=== PATIENT | female | born 1970 | race Caucasian/White ===

== ENCOUNTER 2021-06-02 17:54 | Emergency (ER) | payer OTHER ==
[~2021-06-02] VITALS: Ht 167.6 cm; Wt 68.2 kg
[2021-06-02 18:01] VITALS: BP 148/104
[2021-06-02 19:00] LABS: COVID AG,FIA SOURCE NASOPHARYNGEAL
== END 2021-06-02 18:48 | disposition home or self-care (01) ==
LOC: EMS 17:56
DX: U07.1 COVID-19 (principal); J45.909 Unspecified asthma, uncomplicated
CPT/HCPCS: 87426; 99283; C9803; U0003